=== PATIENT | female | born 1975 | race Caucasian/White ===

== ENCOUNTER 2017-01-07 19:24 | Emergency (ER) | payer BC ==
[~2017-01-07] VITALS: Ht 172.7 cm; Wt 67.3 kg
[~2017-01-07 19:24] MED LIST: AZATHIOPRINE50 MG PO; CALCIUM600 MG PO; DELTASONE20 MG PO; ENDOCET 5-3251 EACH PO; ERGOCALCIF50000 UNI1 PO; FLEXERIL10 MG PO; MESTINON180 MG PO; MOTRIN600 MG PO; MYCOPHENOLATE500 MG PO; PREDNISONE20 MG PO; PREDNISONE5 M2 PO; PYRIDOSTIGMINE60 MG PO; Tylenol Regular Stre PO; VALIUM5 MG PO; Vitamin D, Drisdol PO
[2017-01-07 20:01] LABS: MCV 88.6 FL (83-99); MEAN PLAT.VOLUME 10.7 uM^3 (9.5-12.4); PLATELET COUNT 232 K/uL (156-360); RBC DIS.WIDTH-CV 12.1 % (11.8-14.6); RED BLOOD COUNT 4.29 M/uL (3.80-5.20); WHITE BLOOD COUNT 8.3 K/uL (4.1-10.2)
[2017-01-07 20:06] LABS: ADD MIUA? YES; BILIRUBIN NEGATIVE; BLOOD SMALL; COLOR YELLOW ((YELLOW)); GLUCOSE (STRIP) NEGATIVE; KETONES NEGATIVE; LEUKOCYTES SMALL; NITRITE NEGATIVE; PROTEIN (STRIP) NEGATIVE; UROBILINOGEN 0.2 MG/DL (0.2-1.0)
[2017-01-07 20:12] LABS: BACTERIA RARE /HPF; EPITHELIAL CELLS 1+ /HPF; MUCUS TRACE /LPF; WHITE BLOOD CELLS 0-5 /HPF (0-5)
[2017-01-07 20:13] LABS: CHLORIDE 106 mEq/L (99-109); SODIUM 138 mEq/L (136-147)
[2017-01-07 20:15] LABS: GLUCOSE 98 mg/dL (70-99)
[2017-01-07 20:17] LABS: ANION GAP 8 MEQ/L (2-14); TOTAL BILIRUBIN 1.7 mg/dL (0.0-1.0)
[2017-01-07 20:19] LABS: ALKALINE PHOSPHATASE 66 IU/L (3-129); GFR ESTIMATE (CALCULATED) > 59 mL/min/
[2017-01-07 20:20] LABS: UREA NITROGEN (BUN) 12 mg/dL (9-23)
[2017-01-07 20:22] LABS: LIPASE 29 U/L (1.0-51.0)
[2017-01-07 20:30] LABS: QUANTITATIVE HCG < 4.0 MIU/ML
[2017-01-07] MEDS ORDERED: PREDNISONE20 MG PO (20:35)
[2017-01-07] MEDS ORDERED: TRAMADOL HCL50 MG PO (20:36)
[2017-01-07] MEDS ORDERED: MYCOPHENOLATE500 MG PO (20:36)
[2017-01-07] MEDS ORDERED: NEURONTIN300 MG PO (20:37)
[2017-01-07] MEDS ORDERED: PERCOCET 5/31 TABLET PO (22:48)
[2017-01-07] MEDS ORDERED: BENTYL20 MG PO (22:48)
[2017-01-07] MEDS ORDERED: FLEXERIL10 MG PO (22:48)
[2017-01-07 23:06] VITALS: BP 131/89
== END 2017-01-07 23:10 | disposition home or self-care (01) ==
LOC: EME 19:24
PROVIDERS: Physician Assistant
DX: R10.9 Unspecified abdominal pain (principal); G70.00 Myasthenia gravis without (acute) exacerbation; F17.200 Nicotine dependence, unspecified, uncomplicated
CPT/HCPCS: 74022; 80053; 81003; 83690; 84702; 85027; 99281; 99284; J1885; J7030